=== PATIENT | female | born 1985 | race Caucasian/White ===

== ENCOUNTER → 2019-11-08 09:38 | Outpatient (CLI) | payer OTHER, MEDICAID, SELFPAY ==
[2019-11-08 22:17] LABS: COVID19 Sendout Not Detected (Not Detect)
== END ==
PROVIDERS: Visit Provider Registered Nurse
DX: J02.9 Acute pharyngitis, unspecified (principal)
CPT/HCPCS: 87635

== ENCOUNTER → 2020-01-11 09:37 | Outpatient (CLI) | payer OTHER, MEDICAID, SELFPAY | PROVIDERS: PCP Nurse Practitioner Family; Visit Provider Nurse Practitioner Family | DX: N89.8 Other specified noninflammatory disorders of vagina (principal) | CPT/HCPCS: 87210 ==

== ENCOUNTER → 2022-11-06 08:27 | Outpatient (CLI) | payer OTHER, MEDICAID, SELFPAY ==
[2022-11-06 09:38] LABS: Add Manual Diff / Slide Review NO; Basophils Absolute Auto 0 /uL (0-100); Basophils Percent Auto 0.9 % (0-2); Eosinophils Absolute Auto 200 /uL (0-450); Eosinophils Percent Auto 4.4 % (2-4); Hematocrit 41.4 % (36-46); Hemoglobin 14.1 g/dL (12.0-16.0); Lymphocytes Absolute Auto 1800 /uL (1100-4500); Lymphocytes Percent Auto 41.8 % (25-40); Mean Corpuscular HGB Conc 34.1 % (30-36); Mean Corpuscular Hemoglobin 29.4 PG (26-34); Mean Corpuscular Volume 86.1 fL (80-100); Monocytes Absolute Auto 400 /uL (0-900); Monocytes Percent Auto 9.5 % (3-14); Neutrophils Absolute Auto 1900 /uL (1500-7000); Neutrophils Percent Auto 43.4 % (50-75); Platelet Count 275 X10^3/uL (150-400); Red Cell Distribution Width 12.6 % (11.6-14.8); White Blood Cell Count 4.4 X10^3/uL (4.5-11.0)
[2022-11-06 10:11] LABS: RBC Urine None Seen (0-5/HPF); Squamous Epithelial Cell Urine 0-1 /HPF (0-5/HPF); WBC Urine 0-1/HPF (0-5/HPF)
[2022-11-06 10:12] LABS: Bacteria Urine Occasional (0-1); Culture Indicated Urine Cult Not Indicated
[2022-11-06 10:16] LABS: Alanine Aminotransferase 24 IU/L (<35); Albumin Globulin Ratio 1.4 (1.0-2.8); Alkaline Phosphatase 74 U/L (38-126); Aspartate Aminotransferase 24 IU/L (14-36); BUN Creatinine Ratio 16.9 (6-22); Bilirubin Total 0.7 mg/dL (0.2-1.3); Blood Urea Nitrogen 11 mg/dL (7-17); Calcium 9.1 mg/dL (8.4-10.2); Carbon Dioxide 27 mmol/L (22-32); Chloride 104 mmol/L (98-107); Cholesterol 230 mg/dL (140-199); Estimated Glomerular Filt Rate > 60 mL/min (>60); Globulin 2.8 g/dL (1.7-4.1); Glucose 84 mg/dL (70-100); HDL Cholesterol 71 mg/dL (40-60); HEMOLYSIS < 15 (0-50); LDL Cholesterol Calculated 148 mg/dL (<100); Lipase 83 U/L (23-300); Potassium 4.1 mmol/L (3.4-5.1); Sodium 137 mmol/L (137-145); Total Protein 6.8 g/dL (6.3-8.2); Triglycerides 54 mg/dL (35-150)
[2022-11-06 10:18] LABS: Vitamin D 25 Hydroxy (D3) 31.1 ng/mL (30.0-100.0)
[2022-11-06 10:29] LABS: Pregnancy Test Urine Negative (Negative)
[2022-11-06 10:59] LABS: Vitamin B12 732 pg/mL (239-931)
== END ==
PROVIDERS: PCP Family Medicine; Referring Provider Family Medicine; Visit Provider Family Medicine
DX: R53.83 Other fatigue (principal); R10.9 Unspecified abdominal pain
CPT/HCPCS: 36415; 80053; 80061; 81015; 81025; 82306; 82607; 83690; 85025

== ENCOUNTER → 2022-11-11 08:34 | Outpatient (CLI) | payer OTHER, MEDICAID, SELFPAY ==
--- NOTE | 2022-11-11 08:36 | DI.CT.S_ITS ---
P the ROCEDURE: CT ABDOMEN PELVIS W CON INDICATIONS: Left quadrant abdominal pain x 1 month TECHNIQUE: After the administration of oral and intravenous contrast, axial sections were acquired from the lung bases to the pubic symphysis. Coronal and sagittal reformats were performed. For radiation dose reduction, the following was used: automated exposure control, adjustment of mA and/or kV according to patient size. COMPARISON:None. FINDINGS: Image quality: Excellent. Lung bases: Unremarkable. Heart: No significant findings. ABDOMEN: Liver: Unremarkable. Gallbladder: Unremarkable Biliary ducts: Unremarkable. Pancreas: Unremarkable. Spleen: No splenomegaly. Mildly heterogeneous enhancement of the splenic parenchyma suspected to be related to phase of contrast. Adrenal Glands: Unremarkable. Kidneys and Ureters: Kidneys are symmetric in size and enhancement, and there is no obstructive uropathy. No perinephric inflammatory changes. Ureters are normal in course and caliber. Stomach and Bowel: Stomach, small bowel loops, and colon are unremarkable. Normal appendix. Peritoneum: No abnormal intraperitoneal fluid. No free air. Ventral Wall: There is a fat-containing umbilical hernia without acute inflammation. Abdominal Nodes: No retroperitoneal or mesenteric adenopathy by size criteria. Vessels: Aorta and inferior vena cava are normal in size. PELVIS: Pelvic Organs: Small cystic foci in the bilateral ovary/adnexa likely representing cyst. No suspicious solid lesions identified. Bladder: Unremarkable. Pelvic Nodes: No enlarged lymph nodes. Miscellaneous: No inguinal hernias are seen. Bones: No acute compression fracture. No suspicious osseous lesions. Multilevel spondylosis. IMPRESSION: 1. CT abdomen and pelvis without acute abnormalities to explain patient's symptoms. 2. Mildly heterogeneous enhancement of the spleen without splenomegaly. This is likely related to phase of contrast. If there is left upper quadrant abdominal pain, consider ultrasound to further evaluate. 3. Bilateral cystic lesions in the ovarian/adnexal region likely representing ovarian cysts. If there are clinical concerns for pelvic pathology, consider further evaluation with pelvic ultrasound. 4. Fat containing umbilical hernia without acute inflammation. 5. Mild multilevel spondylosis. Dictated by: Jarad Parmar M.D. on 11/11/2022 at 18:11 Approved by: Jarad Parmar M.D. on 11/11/2022 at 18:20
== END ==
PROVIDERS: PCP Family Medicine; Referring Provider Family Medicine; Visit Provider Family Medicine
DX: K42.9 Umbilical hernia without obstruction or gangrene; R10.32 Left lower quadrant pain; M47.9 Spondylosis, unspecified
CPT/HCPCS: 74177; Q9967

== ENCOUNTER 2023-06-23 08:04 | Emergency (ER) | payer OTHER, MEDICAID, SELFPAY ==
[2023-06-23] VITALS (9 sets, daily range): BP systolic 108–120; BP diastolic 56–73; PULSE 73–103; RESP 14–18; TEMP 37.1; O2SAT 96–98; BMI 26.6
--- NOTE | 2023-06-23 08:15 | ED_ITS ---
HPI - General Chief complaint: Upper Respiratory Symptoms Stated complaint: flu like symptoms, 10wks , bleeding Time Seen by Provider: 06/23/23 08:15 Source: patient, RN notes reviewed and old records reviewed Mode of arrival: Ambulatory Limitations: no limitations History of Present Illness HPI Narrative: 38-year-old female history of asthma who presents with fevers, muscle aches, headache, nausea, nasal congestion, nonproductive cough. Patient states she is unaware of any sick contacts but does spend time with her nieces. She did a home COVID swab which was negative. She has not taken anything for headache which she describes as her main symptom. Patient states headache, no chest pain or shortness of breath, she is had nausea but no vomiting. No diarrhea or constipation, no black or bloody stools. She noticed a small amount of blood when she wiped today was pinkish tinged. She states she did have a small amount of vaginal bleeding early in her but has not had any since. She did not see any clots today. She denies any vaginal discharge. She denies any dysuria, urgency or frequency otherwise. Patient denies any abdominal pain. No new swelling in extremities. She states no daily medications is taking her vitamin. Denies any prior surgeries. Former smoker, no alcohol or recreational drugs. She is following with Dr. Benito for her care. She is accompanied by a friend at bedside. She has not taken anything for her headache or symptoms today she was unsure what medication she can take. Related Data Home Medications Medication Instructions Recorded Confirmed vitamin-ferrous sulfate tab PO 05/26/23 06/10/23 27 mg iron-folic acid 0.8 mg tablet Previous Rx's Medication Instructions Recorded albuterol sulfate 90 mcg/actuation 2 puff inhalation Q6H PRN 11/08/19 aerosol inhaler shortness of breath or wheezing #8 grams doxylamine 10 mg-pyridoxine (vit 1 tab PO BID #60 tabs 06/10/23 B6) 10 mg tablet,delayed release (Diclegis) ondansetron 4 mg disintegrating 4 mg PO QID PRN nausea and 06/23/23 tablet vomiting #10 tabs Allergies Allergy/AdvReac Type Severity Reaction Status Date / Time cefaclor [From [facility]] Allergy Intermediate Verified 06/10/23 09:44 Review of Systems Review of Systems ROS Unobtainable: All systems reviewed & are unremarkable except as noted in HPI and below Exam Narrative Exam Narrative: GENERAL: Alert and oriented x three, female in mild distress. HEENT: Head normocephalic, atraumatic, no photophobia, EOMI, positive for nasal congestion, pupils reactive, face symmetric, moist mucous membranes NECK: Supple, full range of motion CARDIOVASCULAR: Regular rate and rhythm without murmurs, rubs or gallops. No edema bilateral lower extremities. RESPIRATORY: Breath sounds equal bilaterally, no wheezes rales or rhonchi. No tachypnea, no accessory muscle use. Speaks in full sentences. ABDOMEN: Soft, nontender. Normoactive bowel sounds all 4 quadrants. No guarding or rebound, rigidity, no mass. : No CVA tenderness EXTREMITIES: Normal range of motion, no clubbing or edema. Neurovascularly intact NEUROLOGICAL: Cranial nerves II through XII grossly intact. Moving all extremities. Normal gait. SKIN: Warm, dry, no petechiae, no rashes or lesions. Initial Vital Signs Initial Vital Signs: Vital Signs Pulse Rate 100 H 06/23/23 08:08 Blood Pressure 117/73 06/23/23 08:08 Pulse Oximetry 98 06/23/23 08:08 Course Orders Ordered: ED Orders 06/23/23 09:15 ABO RH Type Stat Discontinued Medications Acetaminophen (Acetaminophen 325 Mg Tablet) 975 mg PO NOW ONE Stop: 06/23/23 08:25 Last Admin: 06/23/23 08:35 Dose: 975 mg Documented By: SOURAV Sodium Chloride (Normal Saline 0.9%) 1,000 mls @ 1,000 mls/hr IV BOLUS ONE Stop: 06/23/23 09:23 Last Infusion: 06/23/23 10:10 Dose: Infused Documented By: Admin: 06/23/23 08:38 Dose: 1,000 mls/hr Documented By: SOURAV Ondansetron HCl (Ondansetron 4 Mg/2 Ml Inj) 4 mg IV NOW ONE Stop: 06/23/23 08:25 Last Admin: 06/23/23 08:35 Dose: 4 mg Documented By: SOURAV Vital Signs Vital signs: Vital Signs - 8 hr 06/23/23 10:30 06/23/23 10:30 06/23/23 11:33 Pulse Rate 73 79 Respiratory Rate 14 Blood Pressure 108/60 111/57 L Pulse Oximetry 96 98 Oxygen Delivery Method Room Air MDM - OB/Uterine Contractions Lab Data 06/23/23 08:30 06/23/23 08:30 Labs: Lab Results 06/23/23 06/23/23 06/23/23 Range/Units 08:30 08:53 09:15 WBC 3.4 L (4.5-11.0) X10^3/uL RBC 4.48 (4.0-5.2) X10^6/uL Hgb 13.3 (12.0-16.0) g/dL Hct 39.0 (36-46) % MCV 87.0 (80-100) fL MCH 29.7 (26-34) PG MCHC 34.1 (30-36) % RDW 12.9 (11.6-14.8) % Plt Count 240 (150-400) X10^3/uL Neut % (Auto) 74.9 (50-75) % Lymph % (Auto) 6.6 L (25-40) % [place] % (Auto) 16.9 H (3-14) % Eos % (Auto) 0.8 L (2-4) % Baso % (Auto) 0.8 (0-2) % Neut # (Auto) 2500 (0084-4639) /uL Lymph # (Auto) 200 L (5814-4324) /uL [place] # (Auto) 600 (0-900) /uL Eos # (Auto) 0 (0-450) /uL Baso # (Auto) 0 (0-100) /uL Sodium 132 L (137-145) mmol/L Potassium 3.9 (3.4-5.1) mmol/L Chloride 102 (98-107) mmol/L Carbon Dioxide 23 (22-32) mmol/L BUN 6 L (7-17) mg/dL Creatinine 0.50 L (0.52-1.04) mg/dL Estimated GFR > 60 (>60) mL/min BUN/Creatinine Ratio 12.0 (6-22) Glucose 103 H (70-100) mg/dL Calcium 9.1 (8.4-10.2) mg/dL Total Bilirubin 0.5 (0.2-1.3) mg/dL AST 22 (14-36) IU/L ALT 21 (<35) IU/L Alkaline Phosphatase 70 (38-126) U/L Total Protein 6.7 (6.3-8.2) g/dL Albumin 3.8 (3.5-5.0) g/dL Globulin 2.9 (1.7-4.1) g/dL Albumin/Globulin Ratio 1.3 (1.0-2.8) Lipase 48 (23-300) U/L HCG, Quant 9106.3 mIU/mL Urine RBC 0-1/hpf (0-5/HPF) Urine WBC None seen (0-5/HPF) Ur Squamous Epith Cells 0-1 /hpf (0-5/HPF) Urine Bacteria None seen (None) Ur Culture Indicated? Cult not indicated SARS-CoV-2 (PCR) Positive H (Negative) Influenza A (RT-PCR) Flu a negative (NEGATIVE) Influenza B (RT-PCR) Flu b negative (NEGATIVE) RSV (PCR) Negative (Negative) Blood Type O Positive Urine Dip Bedside Urine Glucose Negative Bedside Urine Bilirubin - Negative Bedside Urine Ketone - Negative Urine Specific [place] 1.005 Bedside Urine Occult Blood ++ Bedside Urine pH 8.0 Bedside Urine Protein - Negative Bedside Urine Urobilinogen - Negative Bedside Urine Nitrite - Negative Bedside Urine Leukocytes - Negative Esterase Imaging Data US - OB: Radiologist's Impression: [place] [address] Ultrasound Report Signed Patient: Lissy Young MR#: [id number] : 1985 Acct:[id number] Age/Sex: 38 / F Date of Service: 06/23/23 Loc: ED Accession Number: [id number] Procedure: US OB <= 14 weeks fetus Ordering Provider: More Lyons D.O. PROCEDURE: US OB <= 14 WEEKS FETUS INDICATIONS: SPOTTING. FEVER/SORE THROAT. OUTSIDE/PRIOR DATING DATA: Last menstrual period (LMP): Unknown. LMP-based estimated date of delivery (ROGER): Not applicable. First dating scan (date and location): 06/10/2023. Estimated date of delivery (ROGER) from first dating scan: 01/27/2024. TECHNIQUE: Real-time scanning was performed of the fetus and maternal pelvic organs, with image documentation. Endovaginal scanning was also performed to better visualize the fetus and maternal ovaries. COMPARISON: None. FINDINGS: There is an intrauterine gestation with a crown-rump length of 32 mm corresponding to a 6 week 0 day gestation. No cardiac activity is seen. No yolk sac is seen. Maternal organs: Luteal cyst probable left-sided corpus luteal cyst. IMPRESSION: Findings suggestive of demise. Clinical correlation recommended. We strive to produce accurate, complete, and clear reports of imaging services. To assist us in improving patient care, this report was composed using standard report templates and voice recognition software. Therefore, it may contain abnormal punctuation, insertions and/or omissions. Occasional wrong-word or sound-alike substitutions may occur. Though we review the report and make efforts to correct it, we do recommend that the report be read carefully in proper context to recognize any text inaccuracies. Dictated by: Johanne Chamorro M.D. on 06/23/2023 at 9:26 Approved by: Johanne Chamorro M.D. on 06/23/2023 at 9:29 MDM Narrative Medical decision making narrative: 38-year-old female approximately 10 weeks by dates. Review of past medical history notes there was date discrepancy between in office ultrasound and patient is last menstrual period by 3 weeks. Patient presents today with symptoms consistent with viral upper respiratory infection possibly influenza she did a COVID test which was negative. Discussed with patient will perform a 4 Plex for COVID/influenza/RSV. Fluids, Zofran and Tylenol for symptoms. Patient does note headache with recent fever. She is normal range of motion of her neck and no meningeal signs. Patient also notes some vaginal spotting. Will obtain labs, Rh status as none available in EMR and OB ultrasound. Labs white count of 3.4 hemoglobin of 13 platelets of 240 patient has elevated monocytes, sodium 132 other electrolytes are appropriate BUN 6 glucose of 103 with normal LFTs. Patient's labs consistent with positive COVID infection. Ultrasound shows intrauterine gestation crown-rump 32 mm funding to 6 weeks 0 day no cardiac activity no yolk sac. Patient had office ultrasound was approximately 6 weeks at her intake with no heartbeat. Suggestive of demise. Patient has had some spotting. Suspect she has not incomplete miscarriage at this time. Respiratory panel: covid positive RH patient is O positive. Does not require RhoGAM. On recheck patient feels improved in terms of symptoms. Tachycardia is improved. Reviewed patient's findings today. Discussed I suspect she is had miscarriage but has not passed the contents need for follow-up. Offered patient to let her stay until I spoke with OBGYN but she would like to return home. Discussed for her to reach out to the OB office but will leave a call out to Dr. Wilkerson which is still pending. Discharge Plan Departure Patient Disposition: Home Clinical Impression: COVID-19 virus infection, Incomplete miscarriage Activity Restrictions/Additional Instructions: Your test today is positive for COVID. Symptoms typically last 7-10 days total. Treatment is mainly symptomatic, you can take Tylenol up to a 1000 mg every 6 hours as needed for fevers. Your ultrasound today did not show a heartbeat incise correlates with dates of 6 weeks. Please follow up with your provider. You should expect to have increasing bleeding and clots over the next several days. If you do not have any additional bleeding follow-up with your provider they may discuss D&C. I do have a call out to Dr. Worley if I hear back I will try to reach out to with their recommendations. Please return if you are having new or worsening abdominal back or flank pain, rapidly worsening symptoms, new chest pain or shortness of breath, difficulty breathing, persistent vomiting or other new or concerning changes. Prescriptions: New ondansetron 4 mg tablet,disintegrating 4 mg PO QID PRN (Reason: nausea and vomiting) Qty: 10 0RF No Action doxylamine-pyridoxine (vit B6) [Diclegis] 10-10 mg tablet,delayed release (DR/EC) 1 tab PO BID Qty: 60 2RF albuterol sulfate 90 mcg/actuation HFA aerosol inhaler 2 puff INHALATION Q6H PRN (Reason: shortness of breath or wheezing) Qty: 8 3RF vit-ferrous sulfat-FA 27 mg iron- 0.8 mg tablet PO Referrals: Austin Benito MD [Physician] - Libby Martínez DO [Primary Care Provider] - Stand Alone Forms: Patient Portal/API
--- NOTE | 2023-06-23 08:24 | DI.US.S_ITS ---
PROCEDURE: US OB <= 14 WEEKS FETUS INDICATIONS: SPOTTING. FEVER/SORE THROAT. OUTSIDE/PRIOR DATING DATA: Last menstrual period (LMP): Unknown. LMP-based estimated date of delivery (ROGER): Not applicable. First dating scan (date and location): 06/10/2023. Estimated date of delivery (ROGER) from first dating scan: 01/27/2024. TECHNIQUE: Real-time scanning was performed of the fetus and maternal pelvic organs, with image documentation. Endovaginal scanning was also performed to better visualize the fetus and maternal ovaries. COMPARISON: None. FINDINGS: There is an intrauterine gestation with a crown-rump length of 32 mm corresponding to a 6 week 0 day gestation. No cardiac activity is seen. No yolk sac is seen. Maternal organs: Luteal cyst probable left-sided corpus luteal cyst. IMPRESSION: Findings suggestive of demise. Clinical correlation recommended. We strive to produce accurate, complete, and clear reports of imaging services. To assist us in improving patient care, this report was composed using standard report templates and voice recognition software. Therefore, it may contain abnormal punctuation, insertions and/or omissions. Occasional wrong-word or sound-alike substitutions may occur. Though we review the report and make efforts to correct it, we do recommend that the report be read carefully in proper context to recognize any text inaccuracies. Dictated by: Johanne Chamorro M.D. on 06/23/2023 at 9:26 Approved by: Johanne Chamorro M.D. on 06/23/2023 at 9:29
[2023-06-23] MEDS: ACETAMINOPHEN 325 MG TABLET 975 MG PO (08:35)
[2023-06-23] MEDS: ONDANSETRON 4 MG/2 ML INJ IV (08:35)
[2023-06-23] MEDS: SODIUM CHLORIDE 0.9% 1,000 ML 1000 ML IV (08:38)
[2023-06-23 08:50] LABS: Add Manual Diff / Slide Review NO; Basophils Absolute Auto 0 /uL (0-100); Basophils Percent Auto 0.8 % (0-2); Eosinophils Absolute Auto 0 /uL (0-450); Eosinophils Percent Auto 0.8 % (2-4); Hemoglobin 13.3 g/dL (12.0-16.0); Lymphocytes Absolute Auto 200 /uL (1100-4500); Lymphocytes Percent Auto 6.6 % (25-40); Mean Corpuscular HGB Conc 34.1 % (30-36); Mean Corpuscular Hemoglobin 29.7 PG (26-34); Monocytes Absolute Auto 600 /uL (0-900); Monocytes Percent Auto 16.9 % (3-14); Neutrophils Absolute Auto 2500 /uL (1500-7000); Neutrophils Percent Auto 74.9 % (50-75); Platelet Count 240 X10^3/uL (150-400); Red Blood Cell Count 4.48 X10^6/uL (4.0-5.2); Red Cell Distribution Width 12.9 % (11.6-14.8); White Blood Cell Count 3.4 X10^3/uL (4.5-11.0)
[2023-06-23 09:05] LABS: Alanine Aminotransferase 21 IU/L (<35); Albumin 3.8 g/dL (3.5-5.0); Albumin Globulin Ratio 1.3 (1.0-2.8); Alkaline Phosphatase 70 U/L (38-126); Aspartate Aminotransferase 22 IU/L (14-36); Bilirubin Total 0.5 mg/dL (0.2-1.3); Blood Urea Nitrogen 6 mg/dL (7-17); Calcium 9.1 mg/dL (8.4-10.2); Carbon Dioxide 23 mmol/L (22-32); Chloride 102 mmol/L (98-107); Estimated Glomerular Filt Rate > 60 mL/min (>60); Globulin 2.9 g/dL (1.7-4.1); Glucose 103 mg/dL (70-100); HEMOLYSIS < 15 (0-50); Lipase 48 U/L (23-300); Potassium 3.9 mmol/L (3.4-5.1); Sodium 132 mmol/L (137-145); Total Protein 6.7 g/dL (6.3-8.2)
--- NOTE | 2023-06-23 09:16 | PC.NURSE ---
Pt complains of generalized body aches, headache, and nausea. Pt is 10 weeks and complains of light menstrual bleeding that began yesterday, denies any abdominal pain. VSS
[2023-06-23 09:26] LABS: Influenza A - CEPHEID Flu A NEGATIVE (NEGATIVE); Influenza B - CEPHEID Flu B NEGATIVE (NEGATIVE); Respiratory Syncytial Virus Negative (Negative)
[2023-06-23 09:26] LABS: Bacteria Urine None Seen; Culture Indicated Urine Cult Not Indicated; RBC Urine 0-1/HPF (0-5/HPF); Squamous Epithelial Cell Urine 0-1 /HPF (0-5/HPF); WBC Urine None Seen (0-5/HPF)
[2023-06-23 09:32] LABS: COVID-19 CEPHEID 4-PLEX PCR POSITIVE (Negative)
== END 2023-06-23 11:35 | disposition home or self-care (01) ==
PROVIDERS: Emergency Provider Emergency Medicine; PCP Family Medicine
DX: U07.1 COVID-19 (principal); O03.4 Incomplete spontaneous abortion without complication
CPT/HCPCS: 0241U; 36415; 76801; 76817; 80053; 81003; 81015; 83690; 84702; 85025; 86900; 86901; 96374; 99284; J2405

== ENCOUNTER → 2023-06-25 17:31 | Outpatient (CLI) | payer OTHER, MEDICAID, SELFPAY | PROVIDERS: PCP Family Medicine; Referring Provider Family Medicine; Visit Provider Family Medicine | DX: O20.9 Hemorrhage in early pregnancy, unspecified (principal) | CPT/HCPCS: 36415; 84702 ==

== ENCOUNTER → 2023-10-31 08:47 | Outpatient (CLI) | payer OTHER, MEDICAID, SELFPAY ==
[2023-10-31 11:13] LABS: HCG Quantitative /Beta subunit 555.6 mIU/mL
== END ==
LOC: LAB 08:48
PROVIDERS: PCP Family Medicine; Referring Provider Obstetrics & Gynecology; Visit Provider Obstetrics & Gynecology
DX: O26.859 Spotting complicating pregnancy, unspecified trimester (principal)
CPT/HCPCS: 36415; 84702

== ENCOUNTER → 2023-11-03 08:53 | Outpatient (CLI) | payer OTHER, MEDICAID, SELFPAY ==
[2023-11-03 10:53] LABS: HCG Quantitative /Beta subunit 626.7 mIU/mL
== END ==
PROVIDERS: PCP Family Medicine; Referring Provider Obstetrics & Gynecology; Visit Provider Obstetrics & Gynecology
DX: O26.859 Spotting complicating pregnancy, unspecified trimester (principal)
CPT/HCPCS: 36415; 84702

== ENCOUNTER → 2023-11-05 11:05 | Outpatient (CLI) | payer OTHER, MEDICAID, SELFPAY ==
[2023-11-05 12:06] LABS: HCG Quantitative /Beta subunit 797.2 mIU/mL
== END ==
PROVIDERS: PCP Family Medicine; Referring Provider Obstetrics & Gynecology; Visit Provider Obstetrics & Gynecology
DX: N92.6 Irregular menstruation, unspecified (principal)
CPT/HCPCS: 36415; 84702

== ENCOUNTER → 2023-12-05 15:56 | Outpatient (CLI) | payer OTHER, MEDICAID, SELFPAY ==
[2023-12-05 17:07] LABS: HCG Quantitative /Beta subunit 4011.5 mIU/mL
== END ==
LOC: LAB 15:56
PROVIDERS: PCP Family Medicine; Referring Provider Obstetrics & Gynecology; Visit Provider Obstetrics & Gynecology
DX: N92.6 Irregular menstruation, unspecified (principal)
CPT/HCPCS: 84702

== ENCOUNTER → 2023-12-10 09:02 | Outpatient (CLI) | payer OTHER, MEDICAID, SELFPAY ==
--- NOTE | 2023-12-10 09:07 | DI.US.S_ITS ---
PROCEDURE: US OB <= 14 WEEKS FETUS INDICATIONS: Rising hCG, bleeding, cramping OUTSIDE/PRIOR DATING DATA: Last menstrual period (LMP): 09/11/2023?? LMP-based estimated date of delivery (ROGER): 06/17/2024. First dating scan (date and location): 12/10/2023. TECHNIQUE: Real-time scanning was performed of the fetus and maternal pelvic organs, with image documentation. Endovaginal scanning was also performed to better visualize the fetus and maternal ovaries. COMPARISON: [facility], CT, CT ABDOMEN PELVIS W CON, 11/11/2022, 8:51. [facility], US, US OB <= 14 WEEKS FETUS, 06/23/2023, 8:45. FINDINGS: Embryo: No intrauterine gestational sac. No pole. Maternal organs: Right paraovarian heterogeneous cyst measuring 2.1 x 2 x 1.8 cm. Somewhat prominent blood flow. Left ovarian hyperechoic cyst measuring 0.9 x 0.8 x 0.7 cm. IMPRESSION: 1. No intrauterine gestational sac. No pole. 2. Heterogeneous right paraovarian cyst measuring 2.2 cm. This could represent an ectopic . 3. Left ovary hyperechoic nodule measuring 0.9 cm. This could represent a small dermoid cyst. Comment: Findings were discussed with COLETTE Alvarado in the clinic of Dr. Pierson at 945 a.m. We strive to produce accurate, complete, and clear reports of imaging services. To assist us in improving patient care, this report was composed using standard report templates and voice recognition software. Therefore, it may contain abnormal punctuation, insertions and/or omissions. Occasional wrong-word or sound-alike substitutions may occur. Though we review the report and make efforts to correct it, we do recommend that the report be read carefully in proper context to recognize any text inaccuracies. Dictated by: Anthony Molina M.D. on 12/10/2023 at 10:26 Approved by: Anthony Molina M.D. on 12/10/2023 at 10:32
== END ==
PROVIDERS: PCP Family Medicine; Referring Provider Obstetrics & Gynecology; Visit Provider Obstetrics & Gynecology
DX: O20.0 Threatened abortion (principal)
CPT/HCPCS: 76801

== ENCOUNTER 2023-12-10 12:49 | Day surgery (SDC) | payer MEDICAID, SELFPAY ==
[2023-12-10] VITALS (7 sets, daily range): BP systolic 116–138; BP diastolic 70–88; PULSE 63–75; RESP 10–21; TEMP 36.3–36.8; O2SAT 98–100; BMI 25.5
--- NOTE | 2023-12-10 | PATH_ITS ---
[facility] Accession Number: [id number] No. of containers..01 Tissue . 01 Material submitted: . fallopian tube - RIGHT FALLOPIAN TUBE WITH ECTOPIC . 01 Diagnosis: RIGHT FALLOPIAN TUBE, RIGHT SALPINGECTOMY: Fimbriated fallopian tube with luminal chorionic villi and rupture, consistent with tubal ectopic implantation. No evidence of neoplasm. MRV 12/15/2023 1419 Local . 01 Electronically signed: . Ulysses Musa MD, PhD, Pathologist NPI- [id number] . 01 Gross description: . Received in formalin labeled with two patient identifiers and right fallopian tube with ectopic, is a 6.4 cm in length and 0.4 cm in diameter fimbriated fallopian tube. The ampulla has a 2.1 x 2.0 x 1.5 cm marked dilatation with a 1.0 cm linear laceration that exudes clotted blood. This area is inked blue, the isthmus is inked black. Sectioning in the area of dilatation shows a moderate amount of clotted blood and hemorrhagic spongy and saccular membranous tissue. No distinct parts or embryonic sac is appreciated. The uninvolved fallopian tube lumen averages 0.3 cm and is stellate. [place] sections are submitted as labeled. Also received in the same container is approximately 20 cc of clotted blood. [place] sections are submitted as follows: A1-A2: Complete cross-section of dilated fallopian tube. A3: Fimbriated end. A4: Black-inked isthmus proximal margin. ([id number]) /ADAM 12/15/2023 1422 Local . 01 Pathologist provided ICD-10: O00.101 . 01 CPT . 948064 Specimen Comment: A courtesy copy of this report has been sent to [phone] Performed at: [address] [facility] [address] [address] [address], [place], [place] [id number] MD Delvis Novoa MD Phone: [phone]
--- NOTE | 2023-12-10 13:12 | PM.PREOP ---
Pre-operative Note COVID-19 COVID-19 status: Not tested Interval Note History & Physical reviewed/Exam performed by Physician: Yes Changes to H&P: No
[2023-12-10] MEDS: LACTATED RINGERS 1,000 ML 42 ML IV ×2 (13:34→15:35)
[2023-12-10] MEDS: ACETAMINOPHEN IV 1,000 MG/100 ML VIAL 400 MG IV (13:55)
[2023-12-10] MEDS: SCOPOLAMINE 1 PATCH TOP (13:56)
[2023-12-10] MEDS: BUPIVACAINE 0.5% (PF) 30 ML, EPINEPHrine 0.15 MG INJ (15:06)
--- NOTE | 2023-12-10 16:12 | P.OP_ITS ---
Operative Date/Time/Diagnoses Date of procedure: 12/10/23 Time of procedure: 14:45 Pre-op diagnosis: Right-sided ectopic Post-op diagnosis: same Procedure & Clinicians Procedure: Procedures Operation Date: 12/10/23 14:30 Actual Procedure Side Surgeon p Diagnostic Laparoscopy for Ectopic with Right Salpingectomy Right Camilo Pierson MD Indications: Lissy is a 38-year-old , LMP 09/09/2023 whose beta HCG levels have risen slowly associated with uterine bleeding and cramping. the patient was under the impression that she had miscarried but a follow-up HCG shows that her HCG levels have continued to rise with her most recent on 12/05/2023 showing a level in excessive of 4000. The patient has had minimal abdominal/pelvic discomfort but pelvic ultrasound performed earlier today shows: FINDINGS: Embryo: No intrauterine gestational sac. No pole. Maternal organs: Right paraovarian heterogeneous cyst measuring 2.1 x 2 x 1.8 cm. Somewhat prominent blood flow. Left ovarian hyperechoic cyst measuring 0.9 x 0.8 x 0.7 cm. IMPRESSION: 1. No intrauterine gestational sac. No pole. 2. Heterogeneous right paraovarian cyst measuring 2.2 cm. This could represent an ectopic . 3. Left ovary hyperechoic nodule measuring 0.9 cm. This could represent a small dermoid cyst. Comment: Findings were discussed with COLETTE Alvarado in the clinic of Dr. Pierson at 945 a.m. Patient's blood type is O positive. Surgeon: Camilo Pierson Operative Notes Findings: Mid isthmic ectopic gestation with small intraperitoneal rupture site and significantly more extensive intra ligamentous rupture necessitating removal of the tube. Uterus itself as well as both ovaries appear normal. The left fallopian tube is normal in all respects with normal fimbria, length, and diameter throughout its course. No sided peritubal adhesions are noted. Closure Type: primary Specimen(s): right tube (With ectopic gestation) Estimated blood loss (mL): 15 Blood products transfused: none Procedure in detail: With the patient under satisfactory general anesthesia in the modified dorsal lithotomy position, the vagina, perineum, and abdomen were prepped and draped in the usual manner for laparoscopy. A pre-surgical safety time-out was then taken in accordance with [facility] OR protocols. No uterine manipulator was placed and instead attention was turned to the umbilicus which was infiltr ated with 0.25% Marcaine with epinephrine. A vertical incision was then made within the umbilicus and the incision carried downward to the fascia. The fascia was then grasped with 2 Niels clamps and incised transversely with Metzenbaum scissors. The defect in the fascia was then explored with Metzenbaum scissors using S retractors and entry into the peritoneal cavity was achieved with sharp and blunt dissection under direct vision. A Fox cannula was then placed through the fascial defect into the abdominal cavity and secured in place with stay sutures of 0 Vicryl. Confirmation of correct placement in the intra- abdominal cavity was confirmed and pneumoperitoneum easily achieved. A 2nd and 3rd 5 mm port were then placed in the left and right mid quadrants after infiltration of the skin and subcutaneous tissues with 0.25% Marcaine with epinephrine. Using a 3 puncture technique, the pelvis and abdomen were thoroughly visualized with the findings as noted above. The right adnexa was carefully inspected and due to the evolving rupture into the broad ligament, saving the right fallopian tube was not deemed feasible. After careful inspection of the contralateral tube and finding it to be absolutely normal in all respects, the decision was made to remove the right fallopian tube. A power Seal device was then used to 1st coagulate the fimbria ovarii Eva and then the mesosalpinx was coagulated and divided across the mesosalpinx to the level of the cornua where the proximal isthmic tube was coagulated and divided. A 10 mm Endo-Catch bag was used to retrieve the ectopic contained in the fallopian tube from the right side. The pelvis and abdomen were thoroughly irrigated and carefully inspected for any other abnormalities. There were no abnormalities seen at that point the pneumoperitoneum was vented. Laparoscopy ports were then removed. The umbilical incision was closed using 0 Vicryl interrupted on the fascia and 4-0 Monocryl inverted interrupted were used to close all 3 laparoscopy port incisions. Appropriate dressings were applied and the patient was awakened from anesthesia. She was then transferred to the PACU for a period of observation and recovery after having tolerated the procedure well. Complications: none Post-operative Condition: stable Disposition: PACU Plan for aftercare: Routine postoperative care with follow-up planned for 2 weeks postop
[2023-12-10] MEDS: OXYCODONE IR 5 MG TABLET PO (16:36)
== END 2023-12-10 16:56 | disposition home or self-care (01) ==
PROVIDERS: PCP Family Medicine; Referring Provider Obstetrics & Gynecology; Visit Provider Obstetrics & Gynecology
PROC: (CPT 49320; principal; 2023-12-10 14:30)
DX: O00.101 Right tubal pregnancy without intrauterine pregnancy (principal)
CPT/HCPCS: 59151; 58661; 76801; J0136; J0171; J0330; J1100; J1885; J2250; J2405; J2704; J3010

== ENCOUNTER → 2024-10-21 12:13 | Outpatient (CLI) | payer OTHER, SELFPAY ==
[2024-10-21 13:07] LABS: Hematocrit 41.5 % (36-46); Mean Corpuscular HGB Conc 33.7 % (30-36); Mean Corpuscular Hemoglobin 29.1 PG (26-34); Mean Corpuscular Volume 86.2 fL (80-100); Platelet Count 299 X10^3/uL (150-400); Red Blood Cell Count 4.82 X10^6/uL (4.0-5.2); Red Cell Distribution Width 12.6 % (11.6-14.8); White Blood Cell Count 6.3 X10^3/uL (4.5-11.0)
[2024-10-21 13:34] LABS: Alanine Aminotransferase 33 IU/L (<35); Albumin 4.4 g/dL (3.5-5.0); Albumin Globulin Ratio 1.8 (1.0-2.8); Alkaline Phosphatase 78 U/L (38-126); Aspartate Aminotransferase 27 IU/L (14-36); BUN Creatinine Ratio 26.5 (6-22); Bilirubin Total 0.6 mg/dL (0.2-1.3); Blood Urea Nitrogen 18 mg/dL (7-17); Calcium 9.7 mg/dL (8.4-10.2); Carbon Dioxide 22 mmol/L (22-32); Chloride 105 mmol/L (98-107); Estimated Glomerular Filt Rate > 60 mL/min (>60); Globulin 2.4 g/dL (1.7-4.1); Glucose 97 mg/dL (70-100); Potassium 4.2 mmol/L (3.4-5.1); Sodium 136 mmol/L (137-145); Total Protein 6.8 g/dL (6.3-8.2)
[2024-10-21 14:01] LABS: TSH w/ Reflex to FT4 0.06 uIU/mL (0.47-4.68)
[2024-10-21 14:08] LABS: HEMOLYSIS < 15 (0-50)
[2024-10-21 15:10] LABS: Cortisol Random 3.18 ug/dL; Follicle Stimulating Hormone 2.32 mIU/mL; Luteinizing Hormone 1.79 mIU/mL
[2024-10-23 11:08] LABS: Estrogen 315 pg/mL (.)
== END ==
PROVIDERS: PCP Family Medicine; Referring Provider Family Medicine; Visit Provider Family Medicine
DX: L81.9 Disorder of pigmentation, unspecified (principal); L68.0 Hirsutism; N92.6 Irregular menstruation, unspecified; D48.5 Neoplasm of uncertain behavior of skin
CPT/HCPCS: 36415; 80053; 82533; 82672; 83001; 83002; 83036; 84439; 84443; 85027

== ENCOUNTER → 2024-11-16 14:46 | Outpatient (CLI) | payer OTHER, SELFPAY ==
[2024-11-16 16:35] LABS: HCG Quantitative /Beta subunit 5140.3 mIU/mL
== END ==
LOC: LAB 14:47
PROVIDERS: PCP Family Medicine; Referring Provider Obstetrics & Gynecology; Visit Provider Obstetrics & Gynecology
DX: N96 Recurrent pregnancy loss (principal)
CPT/HCPCS: 36415; 84702

== ENCOUNTER → 2024-11-18 11:50 | Outpatient (CLI) | payer OTHER, SELFPAY ==
[2024-11-18 13:18] LABS: HCG Quantitative /Beta subunit 10379 mIU/mL
== END ==
PROVIDERS: PCP Family Medicine; Referring Provider Obstetrics & Gynecology; Visit Provider Obstetrics & Gynecology
DX: N96 Recurrent pregnancy loss (principal)
CPT/HCPCS: 36415; 84702

== ENCOUNTER → 2024-11-26 14:43 | Outpatient (CLI) | payer OTHER, SELFPAY ==
[2024-11-26 18:35] LABS: Urine N gonorrhoeae NOT DETECTED
[2024-11-26 18:37] LABS: Urine Chlamydia NOT DETECTED
== END ==
LOC: LAB 14:46
PROVIDERS: PCP Family Medicine; Visit Provider Obstetrics & Gynecology
DX: Z34.91 Encounter for supervision of normal pregnancy, unspecified, first trimester (principal); Z3A.01 Less than 8 weeks gestation of pregnancy
CPT/HCPCS: 87491; 87591

== ENCOUNTER → 2024-12-23 10:38 | Outpatient (CLI) | payer OTHER, SELFPAY ==
[2024-12-23 12:15] LABS: Natera Collection Specimen Collected
[2024-12-23 12:36] LABS: Add Manual Diff / Slide Review NO; Basophils Absolute Auto 0 /uL (0-100); Basophils Percent Auto 0.5 % (0-2); Eosinophils Absolute Auto 300 /uL (0-450); Eosinophils Percent Auto 4.2 % (2-4); Lymphocytes Absolute Auto 1700 /uL (1100-4500); Lymphocytes Percent Auto 27.3 % (25-40); Mean Corpuscular HGB Conc 34.2 % (30-36); Mean Corpuscular Hemoglobin 29.5 PG (26-34); Mean Corpuscular Volume 86.2 fL (80-100); Monocytes Absolute Auto 300 /uL (0-900); Monocytes Percent Auto 5.6 % (3-14); Neutrophils Absolute Auto 3800 /uL (1500-7000); Neutrophils Percent Auto 62.4 % (50-75); Platelet Count 297 X10^3/uL (150-400); Red Blood Cell Count 4.75 X10^6/uL (4.0-5.2); Red Cell Distribution Width 12.9 % (11.6-14.8)
[2024-12-23 13:26] LABS: Free T3, Triiodothyronine Free 4.28 pg/mL (2.77-5.27); Free T4, Direct Thyroxine 1.05 ng/dL (0.78-2.19)
[2024-12-23 13:39] LABS: Thyroid Stimulating Hormone 2.37 uIU/mL (0.47-4.68)
[2024-12-23 15:14] LABS: HIV 1 & 2 Ab/Ag 4th Gen Combo NEGATIVE (NEGATIVE); Hep C Virus Ab w/Reflex Quant NEGATIVE s/c (NEGATIVE); Hepatitis B Surface Antigen NEGATIVE s/c (NEGATIVE); Rubella Antibody IgG 41.1 IU/mL (>15)
[2024-12-24 06:05] LABS: Varicella IgG Antibody Reactive (Non Reactive)
== END ==
PROVIDERS: PCP Family Medicine; Referring Provider Obstetrics & Gynecology; Visit Provider Obstetrics & Gynecology
DX: O09.521 Supervision of elderly multigravida, first trimester (principal); O09.891 Supervision of other high risk pregnancies, first trimester; Z36.0 Encounter for antenatal screening for chromosomal anomalies; E05.90 Thyrotoxicosis, unspecified without thyrotoxic crisis or storm
CPT/HCPCS: 36415; 80055; 84439; 84443; 84481; 86787; 86803; 86850; 86900; 86901; 87086; 87389

== ENCOUNTER → 2025-02-08 09:19 | Outpatient (CLI) | payer OTHER, SELFPAY ==
[2025-02-10 19:38] LABS: Gest Age on Col Date 16.7 weeks (.); OSBR Risk 1IN 2155 (.)
== END ==
PROVIDERS: PCP Family Medicine; Referring Provider Family Medicine; Visit Provider Obstetrics & Gynecology
DX: O09.899 Supervision of other high risk pregnancies, unspecified trimester (principal); Z3A.16 16 weeks gestation of pregnancy; N96 Recurrent pregnancy loss
CPT/HCPCS: 36415; 82105

== ENCOUNTER → 2025-04-20 08:49 | Outpatient (CLI) | payer OTHER, SELFPAY ==
[2025-04-20 10:31] LABS: Hematocrit 36.6 % (36-46); Hemoglobin 12.3 g/dL (12.0-16.0)
[2025-04-20 10:53] LABS: GTT (PREG) 1 Hour PP 50gm Dose 132 mg/dL (76-139)
== END ==
PROVIDERS: PCP Family Medicine; Referring Provider Obstetrics & Gynecology; Visit Provider Obstetrics & Gynecology
DX: O09.899 Supervision of other high risk pregnancies, unspecified trimester (principal); Z3A.26 26 weeks gestation of pregnancy
CPT/HCPCS: 36415; 82950; 85014; 85018

== ENCOUNTER → 2025-05-04 09:20 | Outpatient (CLI) | payer OTHER, SELFPAY | PROVIDERS: PCP Family Medicine; Visit Provider Obstetrics & Gynecology | DX: R82.998 Other abnormal findings in urine (principal) | CPT/HCPCS: 87086 ==

== ENCOUNTER → 2025-05-06 07:18 | Outpatient (CLI) | payer OTHER, SELFPAY ==
--- NOTE | 2025-05-06 07:19 | DI.US.S_ITS ---
PROCEDURE: US OB LIMITED INDICATIONS: growth/ placental position OUTSIDE/PRIOR DATING DATA: Last menstrual period (LMP): 10/14/2024 LMP-based estimated date of delivery (ROGER): 07/21/2025 First dating scan (date and location): 03/09/2025 Estimated date of delivery (ROGER) from first dating scan: 07/18/2025. The calculations are made using the working ROGER of 07/21/2025. TECHNIQUE: Real-time scanning was performed of the fetus, with image documentation and biometric measurements. Endovaginal scanning: Not performed COMPARISON: [facility], , OB <= 14 WEEKS FETUS, 01/07/2025, 9:43. [facility], OB >= 14 WEEKS FETUS, 02/09/2025, 14:59. [facility], US OB >= 14 WEEKS FETUS, 03/09/2025, 9:00. FINDINGS: General: A single living intrauterine gestation is present. Presentation: Breech. Placenta: Placental position is posterior, without previa. Amniotic fluid index: 13.5 cm, normal range is 5-24 cm. Single deepest vertical pocket is 4.2 cm. heart rate: 132 beats per minute. Maternal cervical canal: Closed and measures 5.0 cm long. Normal lower limit is 2.5 cm. biometrics: Biparietal diameter: 7.8 cm, 31 weeks, 3 days. Head circumference: 28.6 cm, 31 weeks, 3 days. Abdominal circumference: 27.2 cm, 31 weeks, 2 days. Femur length: 5.5 cm, 28 weeks, 6 days. Clinically estimated gestational age: 29 weeks, 1 day Composite gestational age from present scan: 30 weeks, 5 days. Estimated weight and percentile: 1587 g, 86%. 3 vessel umbilical cord with normal placental cord insertion. IMPRESSION: 1. Single live intrauterine gestation with fetus in breech presentation. heart rate is 132 beats per minute. [place] is normal at 13.5 cm. 2. Estimated weight is at 86%. 3. Normal placental cord insertion. We strive to produce accurate, complete, and clear reports of imaging services. To assist us in improving patient care, this report was composed using standard report templates and voice recognition software. Therefore, it may contain abnormal punctuation, insertions and/or omissions. Occasional wrong-word or sound-alike substitutions may occur. Though we review the report and make efforts to correct it, we do recommend that the report be read carefully in proper context to recognize any text inaccuracies. Dictated by: Mp Floyd M.D. on 05/06/2025 at 9:06 Approved by: Mp Floyd M.D. on 05/06/2025 at 9:09
== END ==
LOC: US 07:19
PROVIDERS: PCP Family Medicine; Referring Provider Family Medicine; Visit Provider Obstetrics & Gynecology
DX: Z34.83 Encounter for supervision of other normal pregnancy, third trimester (principal); Z3A.30 30 weeks gestation of pregnancy
CPT/HCPCS: 76815

== ENCOUNTER → 2025-06-22 11:01 | Outpatient (CLI) | payer OTHER, SELFPAY ==
[2025-06-23 13:18] LABS: Strep Grp B PCR NEG for Grp B Strep
== END ==
PROVIDERS: PCP Family Medicine; Visit Provider Obstetrics & Gynecology
DX: Z36.85 Encounter for antenatal screening for Streptococcus B (principal)
CPT/HCPCS: 87653

== ENCOUNTER 2025-06-25 22:09 | Outpatient (CLI) | payer OTHER, SELFPAY | END 2025-06-25 22:50 | disposition home or self-care (01) | LOC: OB 06-27 10:35 | PROVIDERS: PCP Family Medicine; Referring Provider Student in an Organized Health Care Education/Training Program; Visit Provider Student in an Organized Health Care Education/Training Program | DX: O36.8130 Decreased fetal movements, third trimester, not applicable or unspecified (principal); Z3A.36 36 weeks gestation of pregnancy | CPT/HCPCS: 59025; G0378; G0379 ==